=== PATIENT | male | born 1940 | race Caucasian/White ===

== ENCOUNTER 2019-09-12 16:00 | Emergency (ER) | payer MEDICARE, MEDICAID ==
[~2019-09-12] VITALS: Ht 165.1 cm; Wt 78.5 kg
--- NOTE | 2019-09-12 16:04 | NUR ---
DERIC FROM [facility] C/O DIARRHEA FOR 3 DAYS. TO ER BED 9, HOOKED TO MONITOR, CHANGEDTO HOSP GOWN, WARM BLANKET PROVIDED, AWAITING MD CHURCH,
--- NOTE | 2019-09-12 16:14 | NUR ---
DR CAMPBELL AT BEDSIDE
[2019-09-12] MEDS ORDERED: LOPERAMIDE HCL (2 MG CAP) 2 MG CAPSULE PO ONE ×2 (16:30→16:31)
[2019-09-12] MEDS ORDERED: IV NS 0.9% 500 ML BAG IV ONE (16:30)
[2019-09-12 16:35] LABS: BASOPHILS # (AUTO) 0.1 /CMM (0.0-0.2); BASOPHILS % (AUTO) 1.6 % (0.0-2.0); EOSINOPHILS % (AUTO) 4.9 % (0.0-6.0); HEMATOCRIT 38 % (39-51); HEMOGLOBIN 13.2 g/dL (13.5-17.5); LYMPHOCYTES # (AUTO) 0.4 /CMM (0.8-4.8); LYMPHOCYTES % (AUTO) 5.9 % (20.0-44.0); MEAN CORPUSCULAR HGB CONC 35 g/dl (31.0-36.0); MEAN CORPUSCULAR VOLUME 93 fL (80-96); MONOCYTES # (AUTO) 0.6 /CMM (0.1-1.30); MONOCYTES % (AUTO) 8.7 % (2.0-12.0); NEUTROPHILS # (AUTO) 5.2 /CMM (1.8-8.9); NEUTROPHILS % (AUTO) 78.9 % (43.0-81.0); PLATELET COUNT (AUTO) 92 /CMM (150-450); RED BLOOD CELL COUNT(AUTO) 4.06 MIL/uL (4.5-6.0); WHITE BLOOD COUNT (AUTO) 6.5 K/uL (4.3-11.0)
[2019-09-12 16:41] LABS: CALCIUM, SERUM 8.8 mg/dL (8.5-10.1); CARBON DIOXIDE 30 mmol/L (21-32); CHLORIDE 105 mmol/L (98-107); CREATININE 1.4 mg/dL (0.6-1.3); GLUCOSE 98 mg/dL (74-106); POTASSIUM 4.3 mmol/L (3.5-5.1); SODIUM SERUM 141 mmol/L (136-145); UREA NITROGEN, BLOOD 22 mg/dL (7-18)
[2019-09-12 16:47] LABS: ALANINE AMINOTRANSFERASE 31 U/L (12-78); ALKALINE PHOSPHATASE 114 U/L (46-116); ASPARTATE AMINOTRANSFERASE 29 U/L (15-37); BILIRUBIN,DIRECT 0.2 mg/dL (0.0-0.2); BILIRUBIN,TOTAL 0.9 mg/dL (0.2-1.0); TOTAL PROTEIN, SERUM 6.8 g/dL (6.4-8.2)
[2019-09-12 17:28] LABS: EOSINOPHILS % (MANUAL) 2 % (0-4); LYMPHOCYTES % (MANUAL) 8 % (16-48); MONOCYTES % (MANUAL) 6 % (0-11.0); NEUTROPHILS % (MANUAL) 84 (42-76)
--- NOTE | 2019-09-12 18:30 | NUR ---
IV removed. Catheter intact and site benign. Pressure and 4x4 applied to site. No bleeding noted.Patient discharged to home in stable condition. Written and verbal after care instructions given. Patient verbalizes understanding of instruction. Patient preferred using [facility] going back to [facility]. Son set-up [employer]. Sent off patient in front of ED via wheelchair.
--- NOTE | 2019-09-12 18:42 | NUR ---
SPOKE TO JUAN RAMON (RETAIL SALESPERSON OF [facility]) [phone], CONFIRMED THAT PATIENT ARRIVED TO THE FACILITY SAFELY.
[2019-09-12 18:44] VITALS: BP 149/79
== END 2019-09-12 18:44 | disposition home or self-care (01) ==
LOC: ER 16:13
DX: R19.7 Diarrhea, unspecified (principal); Z86.73 Personal history of transient ischemic attack (TIA), and cerebral infarction without residual deficits; Z88.8 Allergy status to other drugs, medicaments and biological substances
CPT/HCPCS: 36415; 80048; 80076; 85025; 99283; J7040

== ENCOUNTER 2022-02-18 11:27 | Inpatient (IN) | payer MEDICARE, OTHER ==
[~2022-02-18] VITALS: Ht 167.6 cm; Wt 74.8 kg
--- NOTE | 2022-02-18 12:05 | NUR ---
COVID SWAB COLLECTED AND SENT TO LAB
--- NOTE | 2022-02-18 12:08 | NUR ---
PHLEB TECH AT BEDSIDE FOR BLOOD DRAW
[2022-02-18 12:19] LABS: BASOPHILS # (AUTO) 0.1 K/uL (0.0-0.2); BASOPHILS % (AUTO) 0.7 % (0.0-2.0); EOSINOPHILS % (AUTO) 3.4 % (0.0-6.0); HEMATOCRIT 45 % (39-51); HEMOGLOBIN 15.1 g/dL (13.5-17.5); LYMPHOCYTES # (AUTO) 1.1 K/uL (0.8-4.8); LYMPHOCYTES % (AUTO) 14.7 % (20.0-44.0); MEAN CORPUSCULAR HGB CONC 34 g/dl (31.0-36.0); MEAN CORPUSCULAR VOLUME 94 fL (80-96); MONOCYTES # (AUTO) 0.5 K/uL (0.1-1.30); MONOCYTES % (AUTO) 7.4 % (2.0-12.0); NEUTROPHILS # (AUTO) 5.4 K/uL (1.8-8.9); NEUTROPHILS % (AUTO) 73.8 % (43.0-81.0); PLATELET COUNT (AUTO) 106 K/uL (150-450); RED BLOOD CELL COUNT(AUTO) 4.75 MIL/uL (4.5-6.0); WHITE BLOOD COUNT (AUTO) 7.3 K/uL (4.3-11.0)
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
[2022-02-18 12:41] LABS: ALANINE AMINOTRANSFERASE 26 U/L (12-78); ALBUMIN 4.1 g/dL (3.4-5.0); ALCOHOL, BLOOD < 3 mg/dL (0-0); ALKALINE PHOSPHATASE 128 U/L (46-116); ASPARTATE AMINOTRANSFERASE 20 U/L (15-37); BILIRUBIN,DIRECT 0.1 mg/dL (0.0-0.2); BILIRUBIN,TOTAL 0.6 mg/dL (0.2-1.0); CALCIUM, SERUM 8.5 mg/dL (8.5-10.1); CARBON DIOXIDE 27 mmol/L (21-32); CHLORIDE 108 mmol/L (98-107); CREATININE 1.5 mg/dL (0.6-1.3); GLUCOSE 120 mg/dL (74-106); POTASSIUM 4.3 mmol/L (3.5-5.1); SODIUM SERUM 142 mmol/L (136-145); TOTAL PROTEIN, SERUM 7.7 g/dL (6.4-8.2); UREA NITROGEN, BLOOD 22 mg/dL (7-18)
[2022-02-18 13:01] LABS: ACETAMINOPHEN 0 ug/ml (10-30)
--- NOTE | 2022-02-18 13:23 | NUR ---
URINE SAMPLE SENT TO LAB
--- NOTE | 2022-02-18 13:46 | NUR ---
CALLED [facility] [phone] / [phone]
[2022-02-18] MEDS ORDERED: SENN-261 PO (14:19)
[2022-02-18] MEDS ORDERED: AMLO-213 PO (14:19)
[2022-02-18] MEDS ORDERED: SERT25TA5 PO (14:19)
[2022-02-18] MEDS ORDERED: DONE5TAB34 PO (14:19)
[2022-02-18] MEDS ORDERED: TEMA30CA PO (14:19)
[2022-02-18] MEDS ORDERED: ASPI-1420 PO (14:19)
[2022-02-18] MEDS ORDERED: QUET50TA15 PO (14:19)
[2022-02-18] MEDS ORDERED: NAPR-1126 PO (14:19)
[2022-02-18] MEDS ORDERED: OMEP20TA5 PO (14:20)
[2022-02-18 14:27] LABS: BILIRUBIN,URINE NEGATIVE (NEGATIVE); COLOR,URINE YELLOW (YELLOW); LEUKOCYTE ESTERASE ,URINE NEGATIVE (NEGATIVE); NITRITE, URINE NEGATIVE (NEGATIVE); PROTEIN,URINE TRACE mg/dl (NEGATIVE); UGLUCOSE NEGATIVE (NEGATIVE); UROBILINOGEN,URINE 0.2 EU/dL (0.2)
--- NOTE | 2022-02-18 14:47 | NUR ---
PATIENT TAKEN TO CT VIA MARK
[2022-02-18 14:51] LABS: BACTERIA,URINE None seen /HPF (None Seen); MUCUS,URINE Few /LPF (None Seen); RBC,URINE 21-50 /HPF (0-2); SQUAMOUS EPITHELIAL CELL,UR 0-2 /HPF (None Seen); WBC,URINE 0-2 /HPF (0-3)
--- NOTE | 2022-02-18 14:57 | NUR ---
PSYCH SPRAY MIXER [facility] AT BEDSIDE
--- NOTE | 2022-02-18 17:25 | NUR ---
MOVE SHEET SUBMITTED.
--- NOTE | 2022-02-18 17:35 | NUR ---
BED 214 - B
--- NOTE | 2022-02-18 17:49 | NUR ---
REPORT GIVEN TO NELLIE HERNANDEZ OF [employer]
[2022-02-18] MEDS ORDERED: TEMAZEPAM 15 MG CAPSULE PO PRN (18:00)
[2022-02-18] MEDS ORDERED: BLOOD SUGAR DIAGNOSTIC 1 EACH STRIP IN ONE (18:00)
[2022-02-18] MEDS ORDERED: LORAZEPAM 0.5 MG TABLET PO PRN ×2 (18:00→21:00)
[2022-02-18] MEDS ORDERED: MAG HYDROX/AL HYDROX/SIMETH 30 ML UDC PO PRN (18:00)
[2022-02-18] MEDS ORDERED: MAGNESIUM HYDROXIDE 30 ML UDC PO PRN (18:00)
[2022-02-18 19:30] VITALS: BP 132/67
[2022-02-18 20:00] VITALS: BP 132/67
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
[2022-02-18] MEDS: ACETAMINOPHEN 325 MG TABLET PO PRN (20:50)
[2022-02-18] MEDS ORDERED: TEMAZEPAM 7.5 MG CAPSULE PO PRN (21:00)
[2022-02-19 07:17] LABS: HEMATOCRIT 41 % (39-51); HEMOGLOBIN 14.6 g/dL (13.5-17.5); MEAN CORPUSCULAR HGB CONC 36 g/dl (31.0-36.0); MEAN CORPUSCULAR VOLUME 91 fL (80-96); RED BLOOD CELL COUNT(AUTO) 4.51 MIL/uL (4.5-6.0); WHITE BLOOD COUNT (AUTO) 6.7 K/uL (4.3-11.0)
[2022-02-19 07:18] LABS: BASOPHILS # (AUTO) 0.1 K/uL (0.0-0.2); BASOPHILS % (AUTO) 0.9 % (0.0-2.0); EOSINOPHILS % (AUTO) 3.1 % (0.0-6.0); LYMPHOCYTES % (AUTO) 14.4 % (20.0-44.0); MONOCYTES # (AUTO) 0.4 K/uL (0.1-1.30); MONOCYTES % (AUTO) 6.4 % (2.0-12.0); NEUTROPHILS % (AUTO) 75.2 % (43.0-81.0); PLATELET COUNT (AUTO) 96 K/uL (150-450)
[2022-02-19 07:47] LABS: ALANINE AMINOTRANSFERASE 24 U/L (12-78); ALBUMIN 3.8 g/dL (3.4-5.0); ALKALINE PHOSPHATASE 110 U/L (46-116); ASPARTATE AMINOTRANSFERASE 22 U/L (15-37); BILIRUBIN,TOTAL 0.6 mg/dL (0.2-1.0); CALCIUM, SERUM 8.3 mg/dL (8.5-10.1); CARBON DIOXIDE 29 mmol/L (21-32); CHLORIDE 107 mmol/L (98-107); CREATININE 1.4 mg/dL (0.6-1.3); GLUCOSE 120 mg/dL (74-106); MAGNESIUM 2.1 mg/dL (1.8-2.4); PHOSPHORUS 3.2 mg/dL (2.5-4.9); POTASSIUM 4.1 mmol/L (3.5-5.1); SODIUM SERUM 142 mmol/L (136-145); TOTAL PROTEIN, SERUM 7.2 g/dL (6.4-8.2); UREA NITROGEN, BLOOD 17 mg/dL (7-18)
[2022-02-19 07:49] LABS: CHOLESTEROL 213 mg/dL (<200); HDL CHOLESTEROL 39 mg/dL (40-60); LDL 152 mg/dL (0-99); TRIGLYCERIDES 87 mg/dL (30-150)
[2022-02-19 08:00] VITALS: BP 149/74
[2022-02-19] MEDS: PANTOPRAZOLE 40 MG TABLET.DR PO SCH (08:04)
[2022-02-19] MEDS: DONEPEZIL 5 MG TABLET PO SCH (08:38)
[2022-02-19] MEDS: AMLODIPINE BESYLATE 10 MG TABLET PO SCH (08:38)
[2022-02-19] MEDS: ASPIRIN EC 81 MG TABLET.DR PO SCH (08:38)
[2022-02-19] MEDS: SENNOSIDES 8.6 MG TABLET PO SCH ×2 (08:38→16:39)
[2022-02-19] MEDS ORDERED: NAPROXEN 250 MG TABLET PO SCH (09:00)
--- NOTE | 2022-02-19 14:44 | NUR ---
Montse Goodwin TOPPER PACKER gave an order for Neurology consult for Dr. Tyler. Called the office at [phone] and left a message. Addendum: 02/19/22 at 1457 by ARIANNA JANSEN RN Spoke to Dr. Tyler at [phone] and said he doesn't do for AV shunt. Montse Goodwin made aware.
[2022-02-19 16:00] VITALS: BP 155/87
--- NOTE | 2022-02-19 18:30 | NUR ---
RN-NOTES PATIENT IN ROOM LYING IN BED AWAKE,A/O X3,GUARDED,NO ACUTE DISTRESS NOTED. COMPLIANT WITH MEDICATIONS.NEEDS ASSIST WITH AMBULATING. ABLE TO MAKE NEEDS KNOWN TO THE STAFF.ALL NEEDS ATTENDED AND ANTICIPATED.WILL CONT. MONITORING FOR SAFETY AND BEHAVIOR.WILL ENDORSE TO INCOMING SHIFT FOR CONTINUITY OF CARE.
[2022-02-19] MEDS: RIVASTIGMINE TARTRATE 1.5 MG CAPSULE PO SCH (19:27)
[2022-02-19 20:48] VITALS: BP 151/84
[2022-02-19] MEDS: ATORVASTATIN 10 MG TABLET PO SCH (21:11)
[2022-02-19] MEDS: DIVALPROEX SODIUM 250 MG TABLET.DR PO SCH (21:32)
--- NOTE | 2022-02-20 06:10 | NUR ---
RN NOTES Patient is currently resting in bed. Patient complained of nausea and claims he did not eat dinner. Snacks provided. Tolerated well. Patient denies further feelings of nausea. He is A+Ox3 and cooperative with care. However, patient exhibits periods of confusion and forgetfulness. Patient has poor safety awareness and overestimates his capabilities. He has low energy and usually keeps to himself in his room. Will continue to monitor patient.
[2022-02-20] MEDS: PANTOPRAZOLE 40 MG TABLET.DR PO SCH (07:48)
[2022-02-20] MEDS: RIVASTIGMINE TARTRATE 1.5 MG CAPSULE PO SCH ×2 (07:48→20:21)
[2022-02-20 08:00] VITALS: BP 134/99
[2022-02-20] MEDS: SENNOSIDES 8.6 MG TABLET PO SCH ×2 (08:31→17:22)
[2022-02-20] MEDS: DONEPEZIL 5 MG TABLET PO SCH (08:31)
[2022-02-20] MEDS: DIVALPROEX SODIUM 250 MG TABLET.DR PO SCH ×2 (08:32→20:21)
[2022-02-20] MEDS: AMLODIPINE BESYLATE 10 MG TABLET PO SCH (08:32)
[2022-02-20] MEDS: ASPIRIN EC 81 MG TABLET.DR PO SCH (08:32)
[2022-02-20] MEDS: SERTRALINE HCL 50 MG TABLET PO SCH (08:34)
[2022-02-20] MEDS ORDERED: ONDANSETRON HCL 4 MG/5 ML SOLUTION PO PRN (11:30)
--- NOTE | 2022-02-20 12:00 | NUR ---
RN NOTE PATIENT VOMITED CALLED HAMIDA MOLINA SHE ORDERED ZOFRAN 4MG Q6H PRN FOR NAUSEA AND VOMITING,NOTED AND CARRIED OUT.THE FIRST DOSE GIVEN CONTINUE TO MONITOR.
[2022-02-20] MEDS: ONDANSETRON 4 MG TAB.RAPDIS PO PRN ×2 (12:01→18:02)
[2022-02-20] MEDS: ACETAMINOPHEN 325 MG TABLET PO PRN (14:33)
--- NOTE | 2022-02-20 15:54 | NUR ---
RN NOTE PATIENT VOMITED AFTER ATE LUNCH TODAY,HE COMPLAINING ABOUT RIGHT UPPER ABDOMEN PAIN ACETAMINOPHEN 650 MG PRN FOR PAIN GIVEN CALLED CHEF HEAD TRACY SHE ORDERED STAT CT ABDOMEN PELVIS,CALLED RADIOLOGY,NOTIFIED THEM,WILL FOLLOW UP CONTINUE TO MONITOR.
[2022-02-20 16:00] VITALS: BP 140/72
--- NOTE | 2022-02-20 19:30 | NUR ---
[facility]PS RN NOTE PT RESTING IN BED. A/O X3 AND ABLE TO MAKE NEEDS KNOWN. COOPERATIVE WITH CARE.NO ACUTE DISTRESS NOTED. DENIES SI/HI AT THIS TIME. NO N/V PER PT. SAFETY PRECAUTIONS IN PLACE. WILL CONTINUE TO MONITOR Q15MIN FOR SAFETY AND BEHAVIOR.
[2022-02-20 20:00] VITALS: BP 130/83
[2022-02-20] MEDS: ATORVASTATIN 10 MG TABLET PO SCH (21:41)
[2022-02-21 08:00] VITALS: BP 155/67
[2022-02-21] MEDS: RIVASTIGMINE TARTRATE 1.5 MG CAPSULE PO SCH (08:12)
[2022-02-21] MEDS: PANTOPRAZOLE 40 MG TABLET.DR PO SCH (08:12)
[2022-02-21] MEDS: ASPIRIN EC 81 MG TABLET.DR PO SCH (08:12)
[2022-02-21] MEDS: SENNOSIDES 8.6 MG TABLET PO SCH (08:12)
[2022-02-21] MEDS: DONEPEZIL 5 MG TABLET PO SCH (08:12)
[2022-02-21] MEDS: SERTRALINE HCL 50 MG TABLET PO SCH (08:12)
[2022-02-21 08:13] VITALS: BP 155/67
[2022-02-21] MEDS: AMLODIPINE BESYLATE 10 MG TABLET PO SCH (08:13)
--- NOTE | 2022-02-21 09:29 | NUR ---
Treatment Plan: Pt refused to sign treatment plan and appeared to be confused.
--- NOTE | 2022-02-21 09:29 | NUR ---
GILBERTO Initial Discharge Note: Pt currently resides at [facility] located at [address] [place] [address]. GILBERTO spoke with pt's daughter Shavon ([phone]) to discuss treatment and discharge plan. They stated that they would want pt to go to an Assisted Living but want this marketing underwriter to fill out ALW form, however, at this time they want pt to be discharged. SW will coordinate with family, pt and doctor to help coordinate appropriate discharge.
--- NOTE | 2022-02-21 09:30 | NUR ---
SW Family Contact: SW spoke with pt's daughter Shavon ([phone]) to discuss treatment and discharge plan. They stated that they would want pt to go to an Assisted Living but want this commercial insurance underwriter to fill out ALW form, however, at this time they want pt to be discharged.
--- NOTE | 2022-02-21 10:31 | NUR ---
GILBERTO Referral: Per families request, GILBERTO sent clinicals to [facility] Attn: Rio ([phone]) (F:[phone]). SW sent H & P, progress notes, and medication list.
--- NOTE | 2022-02-21 11:21 | NUR ---
GILBERTO Clinical Note: Pt placed on a 5150 hold for GD. Pt was aggressive at his assisted living. Pt currently resides at [facility] located at [address] [place] [address]. GILBERTO spoke with pt's daughter Shavon ([phone])
--- NOTE | 2022-02-21 11:59 | NUR ---
SW Discharge Note: Patient will be discharged to [facility] located at [address] [place] [address]; ([phone]). Please provide transportation at 2PM. Patients daughter Shavon ([phone]) is aware of discharge. Rio aretha from [facility] ([phone]) stated pt is welcomed today. Pt denies suicidal or homicidal ideation. Pt denies visual/auditory hallucinations. Pt will follow up with (Information Security Officer) Dr. Kei Dubon located at [address] [place] [address]; ([phone]) and (Psychiatrist) Dr. Fela Jones located at [address] [place] [phone]; . Patient presents with euthymic mood and congruent affect.
--- NOTE | 2022-02-21 12:00 | NUR ---
SW SNF CONTACT: GILBERTO spoke with Rio carias ([phone]) (F:[phone]) who stated pt is accepted.
[2022-02-21 12:02] LABS: BASOPHILS % (AUTO) 0.2 % (0.0-2.0); EOSINOPHILS % (AUTO) 0.2 % (0.0-6.0); HEMATOCRIT 48 % (39-51); HEMOGLOBIN 16.5 g/dL (13.5-17.5); LYMPHOCYTES % (AUTO) 7.3 % (20.0-44.0); MEAN CORPUSCULAR HGB CONC 35 g/dl (31.0-36.0); MEAN CORPUSCULAR VOLUME 93 fL (80-96); MONOCYTES # (AUTO) 0.8 K/uL (0.1-1.30); MONOCYTES % (AUTO) 5.8 % (2.0-12.0); NEUTROPHILS # (AUTO) 11.5 K/uL (1.8-8.9); NEUTROPHILS % (AUTO) 86.5 % (43.0-81.0); PLATELET COUNT (AUTO) 130 K/uL (150-450); RED BLOOD CELL COUNT(AUTO) 5.16 MIL/uL (4.5-6.0); WHITE BLOOD COUNT (AUTO) 13.3 K/uL (4.3-11.0)
[2022-02-21 12:44] LABS: CARBON DIOXIDE 26 mmol/L (21-32); CHLORIDE 100 mmol/L (98-107); CREATININE 1.5 mg/dL (0.6-1.3); GLUCOSE 127 mg/dL (74-106); MAGNESIUM 2.4 mg/dL (1.8-2.4); PHOSPHORUS 3.8 mg/dL (2.5-4.9); POTASSIUM 4.1 mmol/L (3.5-5.1); SODIUM SERUM 136 mmol/L (136-145); UREA NITROGEN, BLOOD 25 mg/dL (7-18)
--- NOTE | 2022-02-21 14:35 | NUR ---
Patient discharged to [facility] stable condition.Compliant with medications ,cooperative with treatment plans Patient denies SI/HI/AVH .Behavior improved ,psychiatric tx plans met ,medical tx plans differed for for continual monitoring .Educated pt about after care plan (Exit -care)and copy provided Returned personal belongings to patient med list given and explained to patient able to verbalize understanding. Med reconciliation list sent with patient to SNF, report given to Malu SANON in facility .Vs stable ,no c/o pain .Patient seen by and Buddy SEWELL with discharge orders .Patient discharge at 1435 with ambulance.
== END 2022-02-21 14:35 | DRG 885 ==
LOC: ER 11:40 → GPS 17:46
PROVIDERS: ADMIT Psychiatry & Neurology Psychiatry; ATTEND Nurse Practitioner Acute Care
DX: F39 Unspecified mood [affective] disorder (principal); N17.0 Acute kidney failure with tubular necrosis; F03.90 Unspecified dementia, unspecified severity, without behavioral disturbance, psychotic disturbance, mood disturbance, and anxiety; Z98.2 Presence of cerebrospinal fluid drainage device; E78.5 Hyperlipidemia, unspecified; F32.A Depression, unspecified; I10 Essential (primary) hypertension; Z86.73 Personal history of transient ischemic attack (TIA), and cerebral infarction without residual deficits; Z20.822 Contact with and (suspected) exposure to COVID-19; E86.0 Dehydration; E87.8 Other disorders of electrolyte and fluid balance, not elsewhere classified; K29.80 Duodenitis without bleeding
CPT/HCPCS: 36415; 70450-TC; 80048-TC; 80053-TC; 80061-TC; 80076-TC; 81001; 83735-TC; 84100-TC; 85025-TC; 87081-TC; 97116-TC; 97530-TC; C9803; G0480; Q0162